=== PATIENT | male | born 1980 | race Hispanic/Latino ===

== ENCOUNTER 2020-08-10 18:12 | Emergency (ER) | payer SELFPAY ==
[~2020-08-10] VITALS: Ht 165.1 cm; Wt 113.9 kg
[2020-08-10] MEDS ORDERED: FAMOTIDINE 20 MG/2 ML VIAL IV ONE ×2 (18:30→18:50)
[2020-08-10] MEDS ORDERED: HYDRALAZINE HCL 20 MG/ML VIAL IV ONE (18:30)
[2020-08-10] MEDS ORDERED: ASPIRIN 81 MG CHEW TAB PO ONE (18:30)
[2020-08-10] MEDS ORDERED: NITROGLYCERIN 2% OINT 1 GM PKT TOP ONE (18:30)
[2020-08-10] MEDS ORDERED: ONDANSETRON HCL INJ 2MG/ML 2ML 2 MG/ML VIAL IV PRN (18:30)
[2020-08-10] MEDS ORDERED: ACETAMINOPHEN 325 MG TAB PO ONE (18:30)
[2020-08-10] MEDS ORDERED: ASPIRIN 81 MG CHEW TAB ONE (18:50)
[2020-08-10] MEDS ORDERED: ACETAMINOPHEN 325 MG TAB ONE (18:50)
[2020-08-10] MEDS ORDERED: NITROGLYCERIN 2% OINT 1 GM PKT ONE (18:50)
[2020-08-10] MEDS ORDERED: HYDRALAZINE HCL 20 MG/ML VIAL ONE (18:50)
== END 2020-08-10 21:45 | disposition other institution (70) ==
LOC: FSED 18:25
DX: I21.9 Acute myocardial infarction, unspecified (principal); R07.9 Chest pain, unspecified; I16.0 Hypertensive urgency; E66.9 Obesity, unspecified; R94.31 Abnormal electrocardiogram [ECG] [EKG]; F17.210 Nicotine dependence, cigarettes, uncomplicated
CPT/HCPCS: 71046; 80053; 82553; 84484; 85025; 85379; 93005; 96374; 96375; 99284; J0360; U0002